=== PATIENT | female | born 1975 | race Caucasian/White ===

== ENCOUNTER 2023-02-19 13:55 | Inpatient (IN) ==
[2023-02-19] MEDS ORDERED: Al Hydrox/Mg Hydrox/Simet LIQ 30 ML UDC PO PRN (16:27)
[2023-02-19 16:51] LABS: ABS Eosinophils 0.1 10^3/uL (0.0-0.5); ABS Lymphocytes 2.3 10^3/uL (1.0-4.8); ABS Monocytes 0.4 10^3/uL (0.0-0.9); Hematocrit 39.1 % (35-45); Hemoglobin 13.2 g/dL (11.5-14.3); Mean Corpuscular Hemoglobin 32.9 pg (27-33); Mean Corpuscular Hgb Conc 33.7 g/dL (31-36); Mean Corpuscular Volume 97.7 fL (80-97); Nucleated Red Blood Cells % 0.1 /100 WBC (0.0-0.4); Platelet Count 189 10^3/uL (150-450); White Blood Count 5.8 10^3/uL (3.8-11.8)
[2023-02-19 17:02] LABS: Urine Appearance Clear; Urine Bilirubin Negative (Negative); Urine Blood Negative (Negative); Urine Color Yellow; Urine Glucose Negative (Negative); Urine Ketones Negative (Negative); Urine Nitrite Negative (Negative); Urine Protein Negative (Negative); Urine Specific Gravity 1.011 (1.002-1.030); Urine Urobilinogen Negative (Negative)
[2023-02-19 17:11] LABS: Acetaminophen < 15 mcg/mL; Alcohol, S < 13 mg/dL (<13); Salicylate < 2.50 mg/dL (<30)
[2023-02-19 17:36] LABS: ALT 7 U/L (7-52); AST 11 U/L (13-39); Albumin 4.2 g/dL (3.2-5.2); Albumin/Globulin Ratio 1.3 (1-3); Alkaline Phosphatase 65 U/L (35-149); Anion Gap 9 mmol/L (2-16); Blood Urea Nitrogen 16 mg/dL (6-24); CO2 Carbon Dioxide 20 mmol/L (22-32); Calcium 9.8 mg/dL (8.6-10.3); Chloride 110 mmol/L (101-111); Creatinine, Serum 0.82 mg/dL (0.51-0.95); Globulin 3.2 g/dL (2-4); Glucose 107 mg/dL (70-100); Potassium 4.1 mmol/L (3.5-5.0); Sodium 139 mmol/L (135-145); Total Protein 7.4 g/dL (6.4-8.9); eGFR CKD-EPI 88.2 (>60)
[2023-02-19 17:42] LABS: TSH Ultra Thyroid Stim Horm 0.46 mcIU/mL (0.34-5.60)
[2023-02-19 17:50] LABS: Urine Benzodiazepine Screen None Detected (None Detect); Urine Cannabinoids Screen None Detected (None Detect); Urine Opiates Screen None Detected (None Detect)
[2023-02-19] MEDS ORDERED: Albuterol HFA INHALER 8 gm MDI INH PRN (18:00)
[2023-02-19] MEDS: Mometasone/Formoter 200/5 MDI INH SCH ×2 (21:21→21:32)
[2023-02-20] MEDS: Mometasone/Formoter 200/5 MDI INH SCH (08:45)
[2023-02-20] MEDS ORDERED: NF: Olopatadine 0.2% (NF) 1 DROP BTL BOTH EYES SCH (09:00)
[2023-02-20] MEDS ORDERED: Lidocaine PATCH 4% TOPICAL SCH (09:00)
[2023-02-20 11:03] VITALS: BP 104/63
== END 2023-02-20 12:19 | disposition home or self-care (01) | DRG 755 ==
LOC: ED 13:55 → EDHOLD 16:27 → BSU 19:33
PROVIDERS: ADMIT Psychiatry & Neurology Psychiatry; ATTEND Psychiatry & Neurology Psychiatry